=== PATIENT | female | born 1955 | race Caucasian/White ===

== ENCOUNTER 2018-12-22 01:03 | Inpatient (IN) ==
[2018-12-22] MEDS ORDERED: SODIUM CHLORIDE 0.9% 1,000 ML IV STA ×2 (01:35→03:03)
[2018-12-22] MEDS ORDERED: ONDANSETRON 4 MG/2 ML VIAL IV STA (01:37)
[2018-12-22] MEDS ORDERED: DIPHTHERIA/TETANUS ADULT VACCINE 0.5 ML SYRINGE IM ONE (01:37)
[2018-12-22] MEDS ORDERED: MORPHINE 4 MG/1 ML VIAL IV STA (01:37)
[2018-12-22 02:08] LABS: Basophils % 0.5 % (0.0-0.8); Eosinophils # 0.1 10*3/uL (0.0-0.87); Hematocrit 34.1 VOL% (35.7-47.0); Hemoglobin 10.6 GM/DL (12.0-16.0); Immature Granulocytes % 0.3 %; Immature Granulocytes Absolute 0.01 #; Lymphocytes # 1.5 10*3/uL (1.4-4.0); Lymphocytes % 37.2 % (21.3-54.2); Mean Corpuscular HGB Conc 31.1 GM/DL (32-36); Mean Corpuscular Volume 99.1 FL (87-102); Mean Platelet Volume 12.7 FL (9.6-12.0); Monocytes % 14.8 % (1.7-12.7); Neutrophils % 45.2 % (38.7-73.9); Platelet Count 141 T/CUMM (130-400); Red Blood Count 3.44 MC/CUMM (3.8-5.5); Red Cell Distribution Width 14.3 % (9.3-17.3)
[2018-12-22 02:17] LABS: INR 0.9; Partial Thromboplastin Time 21.6 SECS (0-40)
[2018-12-22 02:29] LABS: Albumin 2.9 G/DL (3.4-5.0); Bilirubin,Total 0.5 MG/DL (0.2-1.0); Calcium 8.7 MG/DL (8.5-10.1); Osmolality,Calculated 278.5 MOS/KG (273-304); Total Protein 7.6 G/DL (6.4-8.3)
[2018-12-22] MEDS ORDERED: MORPHINE 4 MG/1 ML VIAL IV PRN ×3 (04:04→11:24)
[2018-12-22] MEDS ORDERED: BISACODYL 5 MG TABLET PO PRN (04:04)
[2018-12-22] MEDS ORDERED: NICOTINE 21 MG/24 HR PATCH TRANSDERM PRN (04:04)
[2018-12-22] MEDS ORDERED: SODIUM CHLORIDE 0.9% 1,000 ML IV SCH (04:30)
[2018-12-22] MEDS ORDERED: SODIUM CHLORIDE 0.9% IV ONE (06:30)
[2018-12-22] MEDS ORDERED: GENTAMICIN IV ONE (06:30)
[2018-12-22] MEDS: ceFAZolin 1,000 MG in SYRINGE 1 EACH IV SCH ×3 (06:50→22:26)
[2018-12-22] MEDS ORDERED: GENTAMICIN 80 MG/2 ML VIAL ONE (07:55)
[2018-12-22] MEDS ORDERED: PNEUMOCOCCAL VACCINE (23 VALENT) 0.5 ML VIAL IM ONE (08:34)
[2018-12-22] MEDS ORDERED: BACITRACIN OINT 0.9 GM PACK TOP ONE ×2 (09:25→09:33)
[2018-12-22] MEDS ORDERED: DESFLURANE 1 UNIT/15 MINUTE INH ONE (10:03)
[2018-12-22] MEDS ORDERED: fentaNYL 100 MCG/2 ML VIAL ONE (10:03)
[2018-12-22] MEDS ORDERED: ONDANSETRON 4 MG/2 ML VIAL ONE (10:03)
[2018-12-22] MEDS ORDERED: PROPOFOL 200 MG/20 ML VIAL IV ONE (10:03)
[2018-12-22] MEDS ORDERED: PHENYLEPHRINE DRIP 20 MG/250 ML PREMIX IV ONE (10:03)
[2018-12-22] MEDS ORDERED: ROCURONIUM 100 MG/10 ML VIAL IV ONE (10:04)
[2018-12-22] MEDS ORDERED: NEOSTIGMINE 10 MG/10 ML VIAL ONE (10:04)
[2018-12-22] MEDS ORDERED: SUCCINYLCHOLINE 200 MG/10 ML VIAL ONE (10:04)
[2018-12-22] MEDS ORDERED: GLYCOPYRROLATE 0.4 MG/2 ML VIAL ONE (10:04)
[2018-12-22] MEDS ORDERED: LACTATED RINGERS 1,000 ML IV ONE (10:04)
[2018-12-22] MEDS ORDERED: PHENYLEPHRINE 1 MG/10 ML SYRINGE IV ONE (10:04)
[2018-12-22] MEDS ORDERED: ONDANSETRON 4 MG/2 ML VIAL IV PRN (11:24)
[2018-12-22] MEDS ORDERED: MAGNESIUM HYDROXIDE SUSP 30 ML UDCUP PO PRN (11:24)
[2018-12-22] MEDS: MULTIVITAMIN (CENTRUM) TABLET PO SCH (12:32)
[2018-12-22] MEDS: SIMVASTATIN 10 MG TABLET PO SCH (12:32)
[2018-12-22] MEDS: CITALOPRAM 20 MG TABLET PO SCH (12:32)
[2018-12-22] MEDS: MAGNESIUM OXIDE 400 MG TABLET PO SCH ×2 (12:32→21:17)
[2018-12-22] MEDS: HALOPERIDOL 1 MG TABLET PO SCH ×2 (13:25→21:17)
[2018-12-22] MEDS: BENZTROPINE 1 MG TABLET PO SCH (21:16)
[2018-12-22] MEDS: OLANZapine 5 MG TABLET PO SCH (21:17)
[2018-12-22] MEDS: DOCUSATE SODIUM 100 MG CAPSULE PO SCH (21:17)
[2018-12-23 05:34] LABS: Basophils % 0.2 % (0.0-0.8); Eosinophils % 0.5 % (0.00-10.9); Hematocrit 28.8 VOL% (35.7-47.0); Hemoglobin 8.6 GM/DL (12.0-16.0); Immature Granulocytes % 0.5 %; Immature Granulocytes Absolute 0.02 #; Lymphocytes # 0.7 10*3/uL (1.4-4.0); Lymphocytes % 16.7 % (21.3-54.2); Mean Corpuscular HGB Conc 29.9 GM/DL (32-36); Mean Corpuscular Volume 101.8 FL (87-102); Monocytes % 17.6 % (1.7-12.7); Neutrophils % 64.5 % (38.7-73.9); Platelet Count 101 T/CUMM (130-400); Red Blood Count 2.83 MC/CUMM (3.8-5.5); Red Cell Distribution Width 14.2 % (9.3-17.3); White Blood Count 4.4 T/CUMM (4-12)
[2018-12-23] MEDS: FONDAPARINUX 2.5 MG/0.5 ML SYRINGE SUBCUT SCH (05:44)
[2018-12-23] MEDS: ceFAZolin 1,000 MG in SYRINGE 1 EACH IV SCH ×3 (05:46→22:02)
[2018-12-23] MEDS: GENTAMICIN INJ 300 MG in SODIUM CHLORIDE 0.9% 100 ML IV SCH (05:54)
[2018-12-23 06:08] LABS: Calcium 8.6 MG/DL (8.5-10.1); Osmolality,Calculated 281.3 MOS/KG (273-304)
[2018-12-23 06:22] LABS: Atypical Lymphocytes Few; Eosinophils 1 % (0-10); Hypochromasia Slight; Lymphocytes 21 % (20-55); Segmented Neutrophils 63 % (50-85); Total Cells Counted 100
[2018-12-23 06:23] LABS: Macrocytosis Slight; Platelet Estimate Adequate
[2018-12-23] MEDS: DOCUSATE SODIUM 100 MG CAPSULE PO SCH ×2 (08:21→20:43)
[2018-12-23] MEDS: MAGNESIUM OXIDE 400 MG TABLET PO SCH ×2 (08:21→20:43)
[2018-12-23] MEDS: CITALOPRAM 20 MG TABLET PO SCH (08:21)
[2018-12-23] MEDS: SIMVASTATIN 10 MG TABLET PO SCH (08:22)
[2018-12-23] MEDS: HALOPERIDOL 1 MG TABLET PO SCH ×2 (08:22→20:43)
[2018-12-23] MEDS: MULTIVITAMIN (CENTRUM) TABLET PO SCH (08:26)
[2018-12-23] MEDS: BENZTROPINE 1 MG TABLET PO SCH (20:43)
[2018-12-23] MEDS: OLANZapine 5 MG TABLET PO SCH (20:43)
[2018-12-24 05:09] LABS: Basophils % 0.4 % (0.0-0.8); Eosinophils % 0.2 % (0.00-10.9); Hematocrit 27.3 VOL% (35.7-47.0); Hemoglobin 8.2 GM/DL (12.0-16.0); Immature Granulocytes % 0.4 %; Immature Granulocytes Absolute 0.02 #; Lymphocytes # 0.9 10*3/uL (1.4-4.0); Lymphocytes % 17.8 % (21.3-54.2); Mean Platelet Volume 11.7 FL (9.6-12.0); Monocytes % 14.6 % (1.7-12.7); Neutrophils % 66.6 % (38.7-73.9); Platelet Count 109 T/CUMM (130-400); Red Blood Count 2.73 MC/CUMM (3.8-5.5); Red Cell Distribution Width 13.9 % (9.3-17.3)
[2018-12-24] MEDS: FONDAPARINUX 2.5 MG/0.5 ML SYRINGE SUBCUT SCH (06:10)
[2018-12-24] MEDS: ceFAZolin 1,000 MG in SYRINGE 1 EACH IV SCH ×3 (06:10→21:39)
[2018-12-24] MEDS: MULTIVITAMIN (CENTRUM) TABLET PO SCH (09:51)
[2018-12-24] MEDS: CITALOPRAM 20 MG TABLET PO SCH (09:51)
[2018-12-24] MEDS: SIMVASTATIN 10 MG TABLET PO SCH (09:51)
[2018-12-24] MEDS: HALOPERIDOL 1 MG TABLET PO SCH ×2 (09:51→21:03)
[2018-12-24] MEDS: DOCUSATE SODIUM 100 MG CAPSULE PO SCH ×2 (09:51→21:04)
[2018-12-24] MEDS: MAGNESIUM OXIDE 400 MG TABLET PO SCH ×2 (09:51→21:04)
[2018-12-24] MEDS ORDERED: KETOROLAC 10 MG TABLET PO PRN (15:40)
[2018-12-24] MEDS: GENTAMICIN INJ 300 MG in SODIUM CHLORIDE 0.9% 100 ML IV SCH (17:52)
[2018-12-24] MEDS: BENZTROPINE 1 MG TABLET PO SCH (21:03)
[2018-12-24] MEDS: OLANZapine 5 MG TABLET PO SCH (21:04)
[2018-12-25 05:36] LABS: Basophils % 0.6 % (0.0-0.8); Eosinophils % 0.8 % (0.00-10.9); Hematocrit 28.4 VOL% (35.7-47.0); Hemoglobin 8.7 GM/DL (12.0-16.0); Immature Granulocytes % 0.2 %; Immature Granulocytes Absolute 0.01 #; Lymphocytes # 1.1 10*3/uL (1.4-4.0); Lymphocytes % 20.7 % (21.3-54.2); Mean Corpuscular HGB Conc 30.6 GM/DL (32-36); Monocytes % 17.2 % (1.7-12.7); Neutrophils % 60.5 % (38.7-73.9); Platelet Count 124 T/CUMM (130-400); Red Blood Count 2.87 MC/CUMM (3.8-5.5); Red Cell Distribution Width 13.3 % (9.3-17.3); White Blood Count 5.1 T/CUMM (4-12)
[2018-12-25 05:57] LABS: Band Neutrophils 2 % (0-10); Eosinophils 1 % (0-10); Lymphocytes 22 % (20-55); Platelet Estimate Decreased; Segmented Neutrophils 60 % (50-85); Total Cells Counted 100
[2018-12-25 05:58] LABS: Anisocytosis Slight; Macrocytosis Slight
[2018-12-25] MEDS: FONDAPARINUX 2.5 MG/0.5 ML SYRINGE SUBCUT SCH (06:55)
[2018-12-25] MEDS: ceFAZolin 1,000 MG in SYRINGE 1 EACH IV SCH ×2 (07:10→13:37)
[2018-12-25] MEDS: MAGNESIUM OXIDE 400 MG TABLET PO SCH (08:54)
[2018-12-25] MEDS: MULTIVITAMIN (CENTRUM) TABLET PO SCH (08:54)
[2018-12-25] MEDS: SIMVASTATIN 10 MG TABLET PO SCH (08:54)
[2018-12-25] MEDS: DOCUSATE SODIUM 100 MG CAPSULE PO SCH (08:54)
[2018-12-25] MEDS: CITALOPRAM 20 MG TABLET PO SCH (08:54)
[2018-12-25] MEDS: HALOPERIDOL 1 MG TABLET PO SCH (08:56)
[2018-12-25 12:05] VITALS: BP 114/66
== END 2018-12-25 14:00 | DRG 313 ==
LOC: EDUNIT# → EDBD → N.ED 01:03 → N.EDINP 04:04 → SUATTDRO 04:04 → N.3E 04:27
PROVIDERS: ADMIT Internal Medicine; ATTEND Family Medicine

== ENCOUNTER 2021-02-20 14:57 | Inpatient (IN) ==
[2021-02-20 16:33] LABS: Basophils % 0.4 % (0.0-0.8); Eosinophils % 0.6 % (0.00-10.9); Hematocrit 35.1 VOL% (35.7-47.0); Hemoglobin 11.4 GM/DL (12.0-16.0); Immature Granulocytes % 0.3 %; Immature Granulocytes Absolute 0.02 #; Lymphocytes # 1.3 10*3/uL (1.4-4.0); Lymphocytes % 18.7 % (21.3-54.2); Mean Corpuscular HGB Conc 32.5 GM/DL (32-36); Mean Corpuscular Volume 88.9 FL (87-102); Mean Platelet Volume 10.1 FL (9.6-12.0); Monocytes % 9.9 % (1.7-12.7); Neutrophils % 70.1 % (38.7-73.9); Platelet Count 239 T/CUMM (130-400); Red Blood Count 3.95 MC/CUMM (3.8-5.5); Red Cell Distribution Width 15.5 % (9.3-17.3)
[2021-02-20 16:49] LABS: Albumin 2.6 G/DL (3.4-5.0); Bilirubin,Total 0.6 MG/DL (0.20-1.00); Calcium 9.3 MG/DL (8.5-10.1); Osmolality,Calculated 263.8 MOS/KG (273-304); Potassium 3.9 MMOL/L (3.5-5.1); Total Protein 7.7 G/DL (6.4-8.2)
[2021-02-20 17:31] LABS: Bilirubin,Urine Negative (Negative); Blood, Urine Small mg/dL (Negative); Glucose,Urine (UA) Negative (Negative); Ketones,Urine 5 mg/dL (Negative); Nitrite,Urine Negative (Negative); Protein,Urine >=500 MG/DL; RBC,Urine 49 /HPF (0-4); Urine Appearance CLOUDY (Clear); Urine Color Yellow (Yellow); Urine Specific Gravity 1.016 (1.001-1.035)
[2021-02-20] MEDS ORDERED: cefTRIAXone 1,000 MG in SODIUM CHLORIDE 0.9% 100 ML IV STA ×2 (17:33→18:53)
[2021-02-20] MEDS ORDERED: SODIUM CHLORIDE 0.9% 1,000 ML IV STA ×2 (17:35→18:53)
[2021-02-20] MEDS ORDERED: ONDANSETRON 4 MG/2 ML VIAL IV PRN (20:25)
[2021-02-20] MEDS ORDERED: DEXTROSE 50% 25 GM/50 ML VIAL IV PRN (20:25)
[2021-02-20] MEDS ORDERED: GLUCAGON 1 MG VIAL IM PRN (20:25)
[2021-02-20] MEDS ORDERED: ACETAMINOPHEN 325 MG TABLET PO PRN (20:25)
[2021-02-20] MEDS: ENOXAPARIN 30 MG/0.3 ML SYRINGE SUBCUT SCH (21:41)
[2021-02-20] MEDS: OLANZapine 5 MG TABLET PO SCH (21:42)
[2021-02-20] MEDS: SIMVASTATIN 10 MG TABLET PO SCH (21:42)
[2021-02-20] MEDS: SODIUM CHLORIDE 0.9% 1,000 ML IV SCH (22:35)
[2021-02-20] MEDS: BUDESONIDE/FORMOTEROL 160-4.5 INHALER 6 GM INH SCH (22:39)
[2021-02-21 06:49] LABS: Basophils % 0.6 % (0.0-0.8); Eosinophils # 0.1 10*3/uL (0.0-0.87); Eosinophils % 1.1 % (0.00-10.9); Hematocrit 31.4 VOL% (35.7-47.0); Hemoglobin 9.6 GM/DL (12.0-16.0); Immature Granulocytes % 0.6 %; Immature Granulocytes Absolute 0.03 #; Lymphocytes % 20.8 % (21.3-54.2); Mean Corpuscular HGB Conc 30.6 GM/DL (32-36); Mean Corpuscular Volume 93.5 FL (87-102); Monocytes % 11.5 % (1.7-12.7); Neutrophils % 65.4 % (38.7-73.9); Platelet Count 161 T/CUMM (130-400); Red Blood Count 3.36 MC/CUMM (3.8-5.5); Red Cell Distribution Width 15.9 % (9.3-17.3); White Blood Count 4.7 T/CUMM (4-12)
[2021-02-21 07:06] LABS: Calcium 8.2 MG/DL (8.5-10.1); Osmolality,Calculated 275.7 MOS/KG (273-304); Potassium 3.6 MMOL/L (3.5-5.1)
[2021-02-21] MEDS: IPRATROPIUM 500 MCG/2.5 ML NEB RESP TX SCH ×4 (07:10→19:28)
[2021-02-21] MEDS: PANTOPRAZOLE 40 MG TABLET PO SCH (09:53)
[2021-02-21] MEDS: SODIUM CHLORIDE 0.9% 1,000 ML IV SCH ×2 (09:54→21:16)
[2021-02-21] MEDS: BUDESONIDE/FORMOTEROL 160-4.5 INHALER 6 GM INH SCH ×2 (09:54→21:03)
[2021-02-21] MEDS ORDERED: ALBUTEROL 2.5 MG/3 ML NEB RESP TX PRN (16:01)
[2021-02-21] MEDS ORDERED: BUDESONIDE/FORMOTEROL 160-4.5 INHALER 6 GM INH SCH (21:00)
[2021-02-21] MEDS: MIRTAZAPINE 15 MG TABLET PO SCH (21:17)
[2021-02-21] MEDS: OLANZapine 5 MG TABLET PO SCH (21:17)
[2021-02-21] MEDS: ENOXAPARIN 30 MG/0.3 ML SYRINGE SUBCUT SCH (21:17)
[2021-02-21] MEDS: SIMVASTATIN 10 MG TABLET PO SCH (21:17)
[2021-02-21] MEDS: cefTRIAXone 2,000 MG in SODIUM CHLORIDE 0.9% 100 ML IV SCH (21:19)
[2021-02-22 04:51] LABS: Eosinophils # 0.1 10*3/uL (0.0-0.87); Eosinophils % 1.7 % (0.00-10.9); Hematocrit 30.9 VOL% (35.7-47.0); Hemoglobin 9.4 GM/DL (12.0-16.0); Immature Granulocytes % 0.2 %; Immature Granulocytes Absolute 0.01 #; Lymphocytes # 0.8 10*3/uL (1.4-4.0); Lymphocytes % 19.8 % (21.3-54.2); Mean Corpuscular HGB Conc 30.4 GM/DL (32-36); Mean Corpuscular Volume 94.2 FL (87-102); Mean Platelet Volume 10.3 FL (9.6-12.0); Monocytes % 8.7 % (1.7-12.7); Neutrophils % 68.6 % (38.7-73.9); Platelet Count 140 T/CUMM (130-400); Red Blood Count 3.28 MC/CUMM (3.8-5.5); Red Cell Distribution Width 16.3 % (9.3-17.3); White Blood Count 4.2 T/CUMM (4-12)
[2021-02-22 05:06] LABS: Calcium 7.6 MG/DL (8.5-10.1); Osmolality,Calculated 277.5 MOS/KG (273-304); Potassium 3.2 MMOL/L (3.5-5.1)
[2021-02-22] MEDS: IPRATROPIUM 500 MCG/2.5 ML NEB RESP TX SCH ×4 (07:59→19:25)
[2021-02-22] MEDS ORDERED: MAGNESIUM SULF RIDER 4 GM/100 ML PREMIX IV PRN (08:03)
[2021-02-22] MEDS ORDERED: MAGNESIUM SULF RIDER 2 GM/50 ML PREMIX IV PRN (08:03)
[2021-02-22] MEDS ORDERED: NON-FORMULARY MEDICATION (Tiotropium Bromide [Spiriva With Handihaler] 18 mcg Capsule, W/I INH SCH (09:00)
[2021-02-22] MEDS ORDERED: FLUoxetine 20 MG CAPSULE PO SCH (09:00)
[2021-02-22] MEDS: SODIUM CHLORIDE 0.9% 1,000 ML IV SCH ×2 (09:38→17:36)
[2021-02-22] MEDS: PANTOPRAZOLE 40 MG TABLET PO SCH (09:39)
[2021-02-22] MEDS: POTASSIUM CHLORIDE 20 MEQ TABLET PO PRN ×4 (09:39→18:32)
[2021-02-22] MEDS: BUDESONIDE/FORMOTEROL 160-4.5 INHALER 6 GM INH SCH ×2 (13:19→20:53)
[2021-02-22] MEDS: MIRTAZAPINE 15 MG TABLET PO SCH (20:52)
[2021-02-22] MEDS: OLANZapine 5 MG TABLET PO SCH (20:52)
[2021-02-22] MEDS: SIMVASTATIN 10 MG TABLET PO SCH (20:52)
[2021-02-22] MEDS: cefTRIAXone 2,000 MG in SODIUM CHLORIDE 0.9% 100 ML IV SCH (20:53)
[2021-02-22] MEDS ORDERED: ENOXAPARIN 40 MG/0.4 ML SYRINGE SUBCUT SCH (21:00)
[2021-02-23 01:30] LABS: Potassium 4.1 MMOL/L (3.5-5.1)
[2021-02-23] MEDS: SODIUM CHLORIDE 0.9% 1,000 ML IV SCH ×2 (04:30→19:12)
[2021-02-23 06:11] LABS: Basophils % 0.6 % (0.0-0.8); Eosinophils # 0.1 10*3/uL (0.0-0.87); Eosinophils % 1.4 % (0.00-10.9); Hematocrit 28.4 VOL% (35.7-47.0); Hemoglobin 8.6 GM/DL (12.0-16.0); Immature Granulocytes % 0.6 %; Immature Granulocytes Absolute 0.02 #; Lymphocytes # 0.8 10*3/uL (1.4-4.0); Lymphocytes % 22.1 % (21.3-54.2); Mean Corpuscular HGB Conc 30.3 GM/DL (32-36); Mean Platelet Volume 10.6 FL (9.6-12.0); Monocytes % 8.8 % (1.7-12.7); Neutrophils % 66.5 % (38.7-73.9); Platelet Count 130 T/CUMM (130-400); Red Blood Count 3.02 MC/CUMM (3.8-5.5); Red Cell Distribution Width 16.9 % (9.3-17.3); White Blood Count 3.6 T/CUMM (4-12)
[2021-02-23 06:34] LABS: Calcium 7.7 MG/DL (8.5-10.1); Osmolality,Calculated 282.1 MOS/KG (273-304); Potassium 3.7 MMOL/L (3.5-5.1)
[2021-02-23] MEDS: IPRATROPIUM 500 MCG/2.5 ML NEB RESP TX SCH ×3 (08:56→17:19)
[2021-02-23] MEDS ORDERED: LIDOCAINE 2% TOP JELLY 20 ML VIAL INTRAURETH ONE (09:14)
[2021-02-23] MEDS ORDERED: PROMETHAZINE 25 MG/1 ML VIAL IM ONE (10:00)
[2021-02-23] MEDS ORDERED: MEPERIDINE 50 MG/1 ML VIAL IM ONE (10:00)
[2021-02-23] MEDS: PANTOPRAZOLE 40 MG TABLET PO SCH (10:51)
[2021-02-23] MEDS: BUDESONIDE/FORMOTEROL 160-4.5 INHALER 6 GM INH SCH (10:55)
[2021-02-23 16:10] VITALS: BP 96/56
== END 2021-02-23 17:05 | disposition home or self-care (01) | DRG 461 ==
LOC: EDUNIT# → N.ED 14:57 → SUATTDRO 20:25 → N.EDINP 20:25 → N.4E 22:36
PROVIDERS: ADMIT Internal Medicine; ATTEND Emergency Medicine